=== PATIENT | female | born 1950 | race Caucasian/White ===

== ENCOUNTER 2018-01-01 16:00 | Inpatient (IN) | payer OTHER ==
[~2018-01-01] VITALS: Ht 157.5 cm; Wt 116.8 kg
[2018-01-01] MEDS ORDERED: FOSAMAX 70 MG T70 MG PO (16:46)
[2018-01-01] MEDS ORDERED: ALLOPURINOL 10100 M1 PO (16:47)
[2018-01-01] MEDS ORDERED: ASPIRIN325 PO (16:48)
[2018-01-01] MEDS ORDERED: LASIX 40 MG TAB40 M2 PO (16:49)
[2018-01-01] MEDS ORDERED: GABAPENTIN 100100 MG PO (16:51)
[2018-01-01] MEDS ORDERED: FEMARA2.5 MG PO (16:53)
[2018-01-01] MEDS ORDERED: CLARITIN10 MG PO (16:55)
[2018-01-01] MEDS ORDERED: MOBIC15 MG PO (16:55)
[2018-01-01] MEDS ORDERED: OMEGA-31000 M1 PO (16:56)
[2018-01-01] MEDS ORDERED: POTASSIUM20 PO (16:57)
[2018-01-01] MEDS ORDERED: PRAVACHOL20 MG PO (16:58)
[2018-01-01] MEDS ORDERED: AMBIEN 5 MG TABL5 M1 PO (16:59)
[2018-01-01 18:46] VITALS: BP 150/82
--- NOTE | 2018-01-01 19:33 | NUR ---
67 YEAR OLD FEMALE ADMITTED TO ROOM 321 FOR THERAPY AFTER RECENT LEFT CVA. PT LIVES ALONE IN A SENIOR APARTMENT COMPLEX, SHE STATES SHE HAS A LIFELINE FOR EMERGENCIES. ADMISSION PROCESS COMPLETED. PT ORIENTED TO ROOM, BED CONTROLS AND CALL LIGHT, INSTRUCTED TO CALL FOR ASSISTANCE IF SHE NEEDS TO GET OUT OF BED. ADMISSION ORDERS WILL BE OBTAINED FROM DR LERNER. REPORT GIVEN TO ONCOMING NURSE WHO WILL BE CARING FOR THE PT OVERNIGHT.
[2018-01-01 20:15] VITALS: BP 156/85
[2018-01-02 05:21] LABS: HEMATOCRIT 41.4 % (37.0-47.0); HEMOGLOBIN 13.8 gm/dL (12.0-15.0); MCH 31.3 pg (26.0-34.0); MCHC 33.3 g/dL (28.0-37.0); MCV 94.2 fL (80.0-100.0); MPV 7.5 fl. (7.2-11.1); RBC 4.4 mil/uL (4.20-5.00); RDW-CV 14.7 % (10.5-14.5); WBC 9.1 thou/uL (4.0-11.0)
--- NOTE | 2018-01-02 05:39 | NUR ---
Admit at 1745. She had been at [facility] with a left sided CVA affecting her right side. She has some facial droop on the right and dysphagia she is on a mechanically chopped diet with nectar thick liquids. At start of shift he lungs did sound wheezy with the stethescope. She did have some coughing through the night and began audiably wheezing this am. Dr Gregory notified that she was wheezing and short of air walking to the bathroom. Orders were recieved. She has right sided weakness, she needs assist to get out of bed and walks with walker and gaitbelt. Roomair sat after this last episode was 93%. She is currently breathing calmer and chest xray was obtained. SCD's placed on patient as ordered. Bedalarm on. She is resting in bed with head of bed up.
[2018-01-02 06:05] LABS: CREATININE 1.1 mg/dL (0.6-1.3); TOTAL BILIRUBIN 0.4 mg/dL (<0.1-1.0); TOTAL PROTEIN 6.9 g/dL (6.4-8.2)
[2018-01-02 08:08] VITALS: BP 176/86
--- NOTE | 2018-01-02 12:19 | NUR ---
Nutrition: Consult reveived for rehab admit. Admitted s/p CVA and fall. Pt with dysarthria, dysphagia, Rt sided facial droop. Mechanical Chopped diet ordered, Nectart thickened liquids. RX: fish oil, statin, prednisone. Pt has h/o statin intolerance. Wt: 263#. BG is WNL, albumin 3. +BM 2/8. Unsure of po intake today. RN away from desk at time of visit. Appears at low nutrition risk at this time. Will follow weekly on rehab.
--- NOTE | 2018-01-02 13:52 | NUR ---
SW attempted to meet with pt to complete initial assessment, introduce self, and SW role. Pt was sleeping soundly; SW tried to awaken pt twice to no avail. Pt nurse checked pt oxygen that was okay, pt just really tried for a nap apparently. SW called pt daler Jaja and left a message. Reportedly, pt lives in an apt alone with daughters for support at times and pt has a walker, grab bars, life line. SW to continue to follow to assist with safe dc planning.
--- NOTE | 2018-01-02 14:47 | NUR ---
I have reviewed the documentation by JOEY KINCAID from 01/02/18 to 01/02/18 and I concur with it. EMILY ALY
--- NOTE | 2018-01-02 15:50 | NUR ---
PT HAS WORKED WITH THERAPIES AND IS ALERT AND ORIENTATED. PT HAD WHEEZING THIS AM AND HAS MUCINEX AND PREDNISONE ORDERED WITH LESS COUGH THIS AFTERNOON. BREATHING TREATMENTS AND PRN O2 ORDERED. PT SAT NOW IS 93 ON ROOM AIR. PT DENIES PAIN OR NAUSEA AND HAS EATEN LUNCH IN DINNINGROOM. PT IS NOW ON THIN LIQUIDS PER SPEECH. PT CALLS FOR ASSIST TO BATHROOM AND IS CONTINENT OF B+B. PT AMBULATES WITH STEADY GAIT WITH GAITBELT, WALKER AND MIN ASSIST OF 1 AND CALLS FOR ASSIST.PT HAS WEAKNESS TO RT. HAND AND IS ASSISTED WITH PERICARE AFTER VOIDING. PT IS ALERT AND ORIENTATED AND PROGRESSES TOWARDS GOALS. HOURLY ROUNDING CONTINUES.
[2018-01-02 20:06] VITALS: BP 147/78
--- NOTE | 2018-01-03 05:01 | NUR ---
ASSUMED PT CARE AT 1930. PT ALERT AND ORIENTED X4, POLITE AND COOPERATIVE WITH CARES. S/P CVA WITH RIGHT HEMIPARESIS. PT UP TO BATHROOM WITH SBA, GAIT BELT AND WALKER. ASSISTED WITH PERICARES, RIGHT HAND WEAKNESS. BREATHING TREATMENTS FOR WHEEZING. PT ON 2L O2 PER NC OVERNIGHT. PT DENIES PAIN. TAKES PILLS WHOLE WITH WATER WITHOUT DIFFICULTY. PT SLEPT WELL OVERNIGHT. CALL LIGHT AND FREQUENTLY USED ITEMS WITHIN REACH. HOURLY ROUNDING IN PROGRESS, WILL CONTINUE TO MONITOR.
[2018-01-03 07:36] VITALS: BP 143/83
[2018-01-03 10:10] VITALS: BP 146/84
--- NOTE | 2018-01-03 16:50 | NUR ---
ASSUMED CARE AT 0730 PATIENT ALERT/ORIENTED, NO COMPLAINTS OF PAIN THIS SHIFT. UP WITH ASSIST OF ONE AND WALKER/GAIT BELT, TO DINING ROOM FOR MEALS, PARTICIPATED IN ALL THERAPIES TODAY, HOURLY ROUNDING COMPLETED, BED/CHAIR ALARMS IN PLACE, CALL LIGHT IN REACH. CONTINUE WITH CURRENT PLAN OF CARE
--- NOTE | 2018-01-03 19:40 | NUR ---
SITTING UP IN RECLINER WATCHING TV. 2+ BILATERAL LOWER EXTREMITY EDEMA NOTED. AMBULATED TO THE BATHROOM WITH SBA, GAITBELT, WALKER. MINIMAL ASSIST WITH PULLING PANTS UP ON RIGHT SIDE DUE TO RIGHT HEMEPARESIS. TOOK MEDS WHOLE WITH WATER. DENIES PAIN.
--- NOTE | 2018-01-04 05:13 | NUR ---
RESTED QUIETLY WITH 02 NC AT 2 LITERS. OXYGEN PLACED AT ABOUT 2200 FOR C/O SHORTNESS OF BREATH WITH RELIEF. NO COMPLAINTS VOICED DURING THE NIGHT. UP X ONE DURING THE NIGHT TO THE BATHROOM TO VOID. HOURLY ROUNDING IN PROGRESS.
[2018-01-04 06:50] VITALS: BP 141/71
--- NOTE | 2018-01-04 07:30 | NUR ---
0730 ASSUMED CARE OF PT. PLEASE SEE DOCUMENTED ASSESSMENT. PT IS AXOX4. PT WEARS O2 AT 2L PER NC AT HS. OXYGEN OFF IN BED WHEN THIS NURSE WENT INTO ROOM FOR ASSESSMENT. PT ASSISTED UP TO TOILET W/GAIT BELT AND WALKER W/STANDBY ASSIST. PT IS SOA W/EXERTION AND LUNG MOLINA HAVE WHEEZES T/OUT. PT STATES, "THAT'S NORMAL AND ONCE S SIT FOR AWHILE IT WILL GO AWAY." GOALS THIS SHIFT ARE TO: INCREASE ACTIVITY TOLERATED AND ASSIST W/BATHING.
--- NOTE | 2018-01-04 18:21 | NUR ---
OUTCOME SUMMARY: PROGRESSING TOWARDS GOALS. ABLE TO HELP W/BATHING/GROOMING/DRESSING. ABLE TO INCREASE ACTIVITY HOWEVER PT DOES BECOME SOA W/EXERTION. WEARS OXYGEN AT HS. PT ABLE TO USE RIGHT SIDE MORE EVIDENCED BY PT ABLE TO PULL UP HER PANTS AFTER TOILETING. OVERALL PROGNOSIS: GOOD.
[2018-01-04 19:30] VITALS: BP 150/78
--- NOTE | 2018-01-04 20:30 | NUR ---
SITTING UP WITH LEGS ELEVATED. DENIES PAIN. AMBULATED TO THE BATHROOM WITH SBA, GAITBELT, WALKER. NEEDS HELP WITH CLOTHES ON RIGHT SIDE DUE TO RIGHT HEMEPARESIS. 02 NC PLACED AT 2 LITERS FOR C/O SHORTNESS OF BREATH. HAS SHORTNESS OF BREATH WITH ACTIVITY AND AT NIGHT TIME. WHEEZES AUSCULATED IN JOSE R. TOOK MEDS WHOLE WITH WATER.
--- NOTE | 2018-01-05 05:57 | NUR ---
RESTED QUIETLY WITH 02 NC AT TWO LITERS. NO COMPLAINTS VOICED. HOURLY ROUNDING IN PROGRESS.
[2018-01-05 08:20] VITALS: BP 132/70
--- NOTE | 2018-01-05 15:52 | NUR ---
I have reviewed the documentation by JOEY KINCAID from 01/05/18 to 01/05/18 and I concur with it. EMILY ALY
--- NOTE | 2018-01-05 16:18 | NUR ---
PT HAS PARTICIPATED WITH THERAPIES AND CALLS FOR ASSIST TO BATHROOM. PT ANBULATES WELL WITH WALKER, GAITBELT AND MIN ASSIST OF 1. PT BETTER ABLE TO ADJUST CLOTHING AND CLEANSE SELF WITH USE OF RT. 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 PT DENIES PAIN OR DISCOMFORT. PT REMAINS ALERT AND ORIENTATED AND EATS MEALS IN DINNINGROOM. PT CONTINUES TO PROGRESS TOWARDS GOALS AND HOURLY ROUNDING CONTINUES.
--- NOTE | 2018-01-05 16:21 | NUR ---
I have reviewed the documentation by IVON KINCAID from 01/05/18 to 01/05/18 and I concur with it. EMILY ALY
[2018-01-05 19:44] VITALS: BP 130/58
--- NOTE | 2018-01-05 19:50 | NUR ---
SITTING UP IN RECLINER WITH LEGS ELEVATED WATCHING TV. DENIES PAIN. BREATHING IMPROVED SINCE THIS TIME LAST NIGHT. TOOK MED WHOLE WITH WATER.
--- NOTE | 2018-01-06 05:55 | NUR ---
RESTED QUIETLY. NO COMPLAINTS VOICED. HOURLY ROUNDING IN PROGRESS.
[2018-01-06 07:56] VITALS: BP 147/80
--- NOTE | 2018-01-06 10:10 | NUR ---
SW met with pt to follow up with pt since pt was sleeping at time of initial assessment. Pt confirmed that she lives in an apt alone, senior housing with call buttons if needed. Pt dtrs supportive. Pt has an elevated toilet seat, rolling walker, rollator, grab bars. Pt hopeful to wean off of oxygen prior to dc. Pt preference of [facility]. SW to continue to follow to assist with safe dc planning.
--- NOTE | 2018-01-06 18:48 | NUR ---
PT AMBULATES WITH STEADY GAIT, WALKER ,GAITBELT AND MIN ASSIST OF 1. PT HAS MILD WEAKNESS TO RT. HAND WHICH IS IMPROVING. PT CONTINENT OF B+B. PT HAS C/O HEADACHE AND STUFFY NOSE AND SINUSES TODAY WITH PL TYLENON AND SALINE NASAL SPRAY GIVNE WITH GOOD EFFECT. PT REMAINS ALERT AND ORIENTATED AND CALLS FOR ASSIST NEEDED. PT CONTINUES TO PROGRESS TOWARDS GOALS AND HOURLY ROUNDING CONTINUES.
[2018-01-06 20:30] VITALS: BP 167/79
--- NOTE | 2018-01-07 00:43 | NUR ---
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
--- NOTE | 2018-01-07 05:35 | NUR ---
SLEEPING SINCE 0.BRP W/ SBA X1 ONLY.ATE ALL TWO PACKAGES KAELA CRACKERS HS SNACKS W/ H20 ONLY.NO C/O HEADACHES DURING NIGHT.
[2018-01-07 08:12] VITALS: BP 162/82
--- NOTE | 2018-01-07 17:06 | NUR ---
SW met with pt to review team conference summary. Plan for pt to dc home next Friday after team reassesses pt length of stay and finalizes dc plans. Pt in agreement with plan. Pt to dc home to her apt alone with dtr support at times. Pt weaned from oxygen and has elevated toilet seat, RW, rollator, grab bars. Pt preference for [facility]. SW to continue to follow to assist with safe dc plan.
--- NOTE | 2018-01-07 19:02 | NUR ---
AM ASSESSMENT AND VITAL SIGNS COMPLETED DOCUMENTED. PT HAS BEEN COOPERATIVE AND PLEASANT. FALL PRECAUTIONS AND HOURLY ROUNDING CONTINUE. PT's RIGHT ARM REMAINS WEAKER THAN THE LEFT, NO SLURRED SPEECH OR FACIAL DROOP NOTED. PT IS MAKING SOME PROGRESS TOWARD DISCHARGE GOALS.
[2018-01-07 20:27] VITALS: BP 135/73
--- NOTE | 2018-01-07 20:30 | NUR ---
RESTING QUIELTY IN BED. DENIES DISCOMFORT. TOOK MEDS WHOLE WITH WATER. HAD VISITORS AT SHIFT CHANGE.
--- NOTE | 2018-01-08 05:51 | NUR ---
RESTED QUIETLY ON ROOM AIR ALL NIGHT. NO COMPLAINTS VOICED. HOURLY ROUNDING IN PROGRESS.
[2018-01-08 08:17] VITALS: BP 145/79
--- NOTE | 2018-01-08 15:45 | NUR ---
I have reviewed the documentation by JOEY KINCAID from 01/08/18 to 01/08/18 and I concur with it. EMILY ALY
--- NOTE | 2018-01-08 15:47 | NUR ---
ASSUMED CARES OF PT AT 0700. PT IN BED, BED IN LOW AND LOCKED POSITION, BED ALARM ON, FALL PRECAUTIONS IN PLACE, CALL BUTTON AND PERSONAL ITEMS IN PT REACH. PT USES CALL BUTTON APPROPRIATELY. PT A&O X4, RIGHT SIDED WEAKNESS R/T CVA. UP WITH SBA/WALKER/GAIT BELT TO BATHROOM. HRRR PER AUSCULTATION, LCTAB, NON LABORED BREATHING, VSS ON RA, AFEBRILE, PT DENIES PAIN THIS SHIFT. HOURLY ROUNDING CONTINUES. CHAIR ALARM IN USE WHEN PT IS OOB. PT PARTICIPATES IN THERAPIES AND TO DINING ROOM FOR MEALS. LE EDEMA, SCATTERED BRUISING/SCARS, SKIN INTACT. PT CONTINENT OF B&B, TWO BM'S TODAY, FORMED/SOLID. PT PROGRESSING TOWARDS GOAL, WILL CONTINUE TO MONITOR PT PROGRESS AND STATUS. HOURLY ROUNDING CONTINUES.
--- NOTE | 2018-01-08 19:22 | NUR ---
REPORT TO IT SPECIALIST FOR CONTINUED CARES. PT REMAINS STABLE. NURSE ASSISTED PT TO CHANGE FROM CLOTHES TO PAJAMAS TO PREPARE FOR BED. PT UP ONE ASSIST WITH GAIT BELT AND WALKER. RIGHT UE WEAKNESS. HOURLY ROUNDS COMPLETED. VSS ON RA. PT PROGRESSING TOWARDS GOAL. PT PARTICIPATED IN ALL THERAPIES AND TO DINING ROOM FOR MEALS.
[2018-01-08 20:40] VITALS: BP 154/84
--- NOTE | 2018-01-09 05:19 | NUR ---
ASSUMED PT CARE AT 1930. PT ALERT AND ORIENTED X4, POLITE AND COOPERATIVE WITH CARES. DENIES PAIN. LEFT CVA WITH RIGHT HEMIPARESIS. BRP WITH SBA AND GAIT BELT. TAKES PILLS WHOLE WITH WATER WITHOUT DIFFICULTY. ON ROOM AIR OVERNIGHT. ARINAIEN AT HS PER PT REQUEST. BED ALARM ON FOR SAFETY. PT SLEPT WELL OVERNIGHT. CALL LIGHT AND FREQUENTLY USED ITEMS WITHIN REACH. HOURLY ROUNDING IN PROGRESS, WILL CONTINUE TO MONITOR.
[2018-01-09 08:00] VITALS: BP 131/72
--- NOTE | 2018-01-09 16:26 | NUR ---
I have reviewed the documentation by JOEY KINCAID from 01/09/18 to 01/09/18 and I concur with it. EMILY ALY
--- NOTE | 2018-01-09 18:56 | NUR ---
AM ASSESSMENT AND VITAL SIGNS COMPLETED DOCUMENTED. PT HAS BEEN COOPERATIVE AND PLEASANT, CONTINUES TO PROGRESS TOWARD DISCHARGE GOALS. NO C/O PAIN OR DISCOMFORT. FALL PRECAUTIONS AND HOURLY ROUNDING IN PLACE.
[2018-01-09 20:32] VITALS: BP 149/82
--- NOTE | 2018-01-10 05:21 | NUR ---
ASSUMED PT CARE AT 1930. PT ALERT AND ORIENTED X4, POLITE AND COOPERATIVE WITH CARES. LEFT CVA WITH RIGH HEMIPARESIS. DENIES PAIN. BRP WITH SBA AND GAIT BELT. TAKES PILLS WHOLE WITH WATER WITHOUT DIFFICULTY. ON ROOM AIR OVERNIGHT. ARINAIEN AT HS PER PT REQUEST. BED ALARM ON FOR SAFETY. PT SLEPT WELL OVERNIGHT. CALL LIGHT AND FREQUENTLY USED ITEMS WITHIN REACH. USES CALL LIGHT APPROPRIATELY. HOURLY ROUNDING IN PROGRESS, WILL CONTINUE TO MONITOR.
[2018-01-10 08:00] VITALS: BP 123/79
--- NOTE | 2018-01-10 18:42 | NUR ---
AM ASSESSMENT AND VITAL SIGNS COMPLETED DOCUMENTED. FALL PRECAUTIONS AND HOURLY ROUNDING OBSERVED. PT IS COOPERATIVE AND COMPLETES ALL TASKS WITH SUPERVISION AND EXTRA TIME. TYLENOL GIVEN X2 FOR C/O LEFT HIP PAIN. NO ACUTE DISTRESS, WILL CONTINUE TO MONITOR.
[2018-01-10 20:00] VITALS: BP 141/77
--- NOTE | 2018-01-11 05:14 | NUR ---
ASSUMED PT CARE AT 1930. PT ALERT AND ORIENTED X4, POLITE AND COOPERATIVE WITH CARES. LEFT CVA WITH RIGHT HEMIPARESIS. DENIES PAIN. BRP WITH SBA AND GAIT BELT. TAKES PILLS WHOLE WITH WATER WITHOUT DIFFICULTY. ON ROOM AIR OVERNIGHT. ARINAIEN AT HS PER PT REQUEST. BED ALARM ON FOR SAFETY. PT SLEPT WELL OVERNIGHT. CALL LIGHT AND FREQUENTLY USED ITEMS WITHIN REACH. USES CALL LIGHT APPROPRIATELY. HOURLY ROUNDING IN PROGRESS, WILL CONTINUE TO MONITOR.
[2018-01-11 07:30] VITALS: BP 131/63
--- NOTE | 2018-01-11 18:05 | NUR ---
AM ASSESSMENT AND VITAL SIGNS COMPLETED DOCUMENTED. PT AMBULATED TO AND FROM THE DINING ROOM FOR MEALS. PRN TYLENOL AND ICE PACKS PROVIDED FOR LEFT HIP PAIN. PT IS VERY COOPERATIVE AND CONTINUES TO WORK TOWARD DISCHARGE GOALS. FALL PRECAUTIONS AND HOURLY ROUNDING IN PLACE.
[2018-01-11 20:00] VITALS: BP 140/70
--- NOTE | 2018-01-12 05:28 | NUR ---
ASSUMED CARES AT 1920. PT ALERT AND ORIENTED. PLEASANT. DECLINED ANY NEED FOR PAIN MED FOR LEFT HIP PAIN. AMBIEN GIVEN. SHE IS A SBA WITH GAIT BELT AND WALKER. UP TO BATHROOM. DOES OWN CARES. INITIALLY HAD DIFFICULTY FALLING ASLEEP DESPITE ALREADY TAKEN AMBIEN. ASLEEP AFTER MIDNIGHT. CALL LIGHT IN REACH AND BED ALARM ON.
[2018-01-12 07:30] VITALS: BP 132/76
--- NOTE | 2018-01-12 14:29 | NUR ---
I have reviewed the documentation by JOEY KINCAID from 01/12/18 to 01/12/18 and I concur with it. EMILY ALY
--- NOTE | 2018-01-12 16:17 | NUR ---
SW faxed initial referral to pt preference of HH agency: [facility] for pt to dc home Sunday 01/14. SW to fax final orders on dc day. SW to continue to follow to assist with safe dc planning.
--- NOTE | 2018-01-12 16:24 | NUR ---
ASSUMMED CARE OF PT AT 0730, PT ALERT AND ORIENTED, TRANSFERS WITH SBA, GB WALKER, VOIDS PER TOILET, AMBULATED TO DININGROOM FOR LUNCH, PT COMPLAINED OF LEFT HIP PAIN, MEDICATED FOR PAIN WITH GD RELIEF , ORDER OBTAINED FOR TRAMADOL PER PT REQUEST FOR USE AT NIGHT, TAKING FOOD AND FLUIDS WELL, PARTICIPATED IN ALL THERAPIES, HOURLY ROUNDING COMPLETED, ASSESSMENT COMPLETE, WILL CONTINUE TO MONITER.
[2018-01-12 19:55] VITALS: BP 149/86
--- NOTE | 2018-01-13 05:17 | NUR ---
ASSUMED PT CARE AT 1930. PT ALERT AND ORIENTED X4, POLITE AND COOPERATIVE WITH CARES. PT UP WITH SBA, GAIT BELT AND WALKER. UP TO BATHROOM X1 OVERNIGHT TO VOID. PT DENIES PAIN HAVING HAD TRAMADOL BEFORE SHIFT CHANGE. ARINAIEN AT HS PER PT REQUEST. PT SLEPT WELL OVERNIGHT. CALL LIGHT AND FREQUENTLY USED ITEMS WITHIN REACH. USES CALL LIGHT APPROPRIATELY. BED ALARM ON FOR SAFETY. HOURLY ROUNDING IN PROGRESS, WILL CONTINUE TO MONITOR.
[2018-01-13 07:30] VITALS: BP 108/68
--- NOTE | 2018-01-13 16:52 | NUR ---
ASSUMMED CARE OF PT AT 0730, PT ALERT AND ORIENTED, PT TRANSFERS WITH ASSIST OF 1 GB AND WALKER, PT COMPLAINS OF HIP PAIN, MEDICATED X 1 FOR PAIN PRIOR TO THERAPY THIS AM, PT TAKING FOOD AND FLUIDS WELL, VOIDS PER TOILET, PT PARTICIPATED IN ALL THERAPIES, AMBULATED TO DININGROOM FOR LUNCH, HOURLY ROUNDING COMPLETED, ASSESSMENT COMPLETE, WILL CONTINUE TO MONITER.
[2018-01-13 19:38] VITALS: BP 144/68
[2018-01-14 03:53] LABS: HEMATOCRIT 37.5 % (37.0-47.0); HEMOGLOBIN 12.8 gm/dL (12.0-15.0); MCH 31.7 pg (26.0-34.0); MCV 93.1 fL (80.0-100.0); MPV 7.6 fl. (7.2-11.1); RBC 4.03 mil/uL (4.20-5.00); RDW-CV 14.4 % (10.5-14.5); WBC 8.2 thou/uL (4.0-11.0)
[2018-01-14 04:19] LABS: CALCIUM 8.6 mg/dL (8.5-10.1); MAGNESIUM 1.7 mg/dL (1.8-2.4); POTASSIUM 4.2 mmol/L (3.5-5.1)
--- NOTE | 2018-01-14 05:29 | NUR ---
ASSUMED PT CARE AT 1920. PT ALERT AND ORIENTED X4, POLITE AND COOPERATIVE WITH CARES. PT UP WITH SBA, GAIT BELT AND WALKER TO BATHROOM TO VOID. PRN TRAMADOL AND PRN AMBIEN AT HS PER PT REQUEST. PT SLEPT WELL OVERNIGHT. CALL LIGHT AND FREQUENTLY USED ITEMS WITHIN REACH. USES CALL LIGHT APPROPRIATELY. BED ALARM ON FOR SAFETY. HOURLY ROUNDING IN PROGRESS, WILL CONTINUE TO MONITOR.
[2018-01-14 08:42] VITALS: BP 138/71
--- NOTE | 2018-01-14 16:13 | NUR ---
ASSUMED CARE AT 0730, PATIENT ALERT/ORIENTED, NO COMPLAINTS OF PAIN THIS SHIFT, UP WITH STANDBY ASSIST WITH CANE/GAIT BELT. TO DINING ROOM FOR MEALS, PARTICIPATED IN ALL THERAPIES TODAY, HOURLY ROUNDING COMPLETED, BED/CHAIR ALARMS IN PLACE, CALL LIGHT IN REACH.
--- NOTE | 2018-01-14 17:14 | NUR ---
SW met with pt to review team conference summary. Plan for pt to remain on rehab unti a few more days, possible dc Friday if not, Friday after team conference to reassess. SW explained team's concerns with pt home alone and pt said that she knows she will be okay at home with family and friends to check on her and she says that her granddaughter should be able to stay with her for a week. 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 SW brought up idea of SNF as discussed in team as well, and pt adimantly refused, stating that she will not go to SNF. SW requested being able to arrange for family training and pt is declining saying that her family would be unable to take time off work, etc. SW to continue to follow to contact family to review and to assist with safe dc planning.
[2018-01-14 20:27] VITALS: BP 145/64
--- NOTE | 2018-01-15 01:42 | NUR ---
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
--- NOTE | 2018-01-15 05:40 | NUR ---
SLEEPING SINCE 2199.BRP X1 ONLY W/ SBA.TOOK ALL ORANGE JUICE W/ 2 PACKAGES KAELA CRACKERS HS SNACKS.
[2018-01-15 07:51] VITALS: BP 133/77
--- NOTE | 2018-01-15 16:56 | NUR ---
ASSUMED CARE AT 0730 PATIENT ALERT/ORIENTED, NO COMPLAINTS OF PAIN THIS SHIFT, UP WITH STANDBY ASSIST WITH WALKER/GAIT BELT. PARTICIPATED IN ALL THERAPIES TO DINING ROOM FOR MEALS, HOURLY ROUNDING COMPLETED, BED/CHAIR ALARMS IN PLACE, CALL LIGHT IN REACH. PATIENT RECIEVED NEWS OF FAMILY MEMBER PASSING AWAY TODAY, ORDERED LORAZEPAM PRN TO HELP WITH ANXIETY ISSUES, FIRST DOSE GIVEN AT 1630, PATIENT RESTING WITH EYES CLOSED IN CHAIR.
[2018-01-15 19:50] VITALS: BP 139/70
--- NOTE | 2018-01-16 00:24 | NUR ---
ASSUMED CARE @ 1924-.AWAKE IN BED WATCHING TV.HOB UP.BED ALARM PUT ON @ 1924.HAND OUTSOLE TACKER & PEDAL PUSHES EQUALLY STRONG.REFUSED SCHEDULED HS MELATONIN.PREFERS PRN AMBIEN 10 MG ORAL & GIVEN @ 2011.AWAKE @ 2305.PRN ATIVAN 0.5 MG ORAL GIVEN.APPEARS SLEEPING @ -01/16-FRIDAY.ON HOURLY ROUNDS. SBA FOR ALL TRANSFERS & TOILETING.
--- NOTE | 2018-01-16 05:24 | NUR ---
SLEEPING SINCE 2099.BRP X1 ONLY.REFUSED HS SNACKS.NOTED @ 1950-RED RASHES ON FACE.PATIENT CLAIMS SHE GETS RASHES IF SHE IS ON STRESS- OF BROTHER IN LAW.MODIFIED IND TODAY-01/16-FRIDAY.
[2018-01-16 07:30] VITALS: BP 147/81
--- NOTE | 2018-01-16 10:04 | NUR ---
SW tried to contact pt dtr to discuss dc planning and family training. No answer so SW left a detailed message requesting a call back. Pt continue to be adimant that she will be returning home with HH and not SNF. Possibility for Mod I in pt room today. SW to continue to follow to assist with safe dc planning.
--- NOTE | 2018-01-16 18:41 | NUR ---
ASSUMED CARE AT 0730. 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 HX OF CVA. PT. IS MOD I IN HER ROOM. TRANSFERS WITH WALKER AND AMBULATING TO BR TO VOID. ABLE TO MANAGE CLOTHING AND DO HYGEINE. DENIES PAIN OR REQUESTS PARTICIPATING IN THERAPIES THROUGHOUT THE DAY. TO DR FOR MEALS. APPETITE GOOD FEEDS SELF AND TAKES MEDS WITHOUT DIFFICULTY.
--- NOTE | 2018-01-16 19:55 | NUR ---
RESTING QUIETLY IN BED. HAS RED RASH ON FACE. PT STATES IT WAS BECAUSE OF SOMETHING TO DO WITH SOMETHING ABOUT HER BROTHER(?) ANXIOUS AND NEEDY. ASKED THIS NURSE TO HAND HER THE WATER GLASS. REMINDED PT THAT SHE WAS MODIFIED INDEPENDENT AND NEEDED TO DO TASKS WITHOUT ASSIST SO SHE WILL BE ABLE TO RETURN HOME. SUGGESTED TO PATIENT TO RAISE THE HEAD OF THE BED SO SHE COULD REACH HER WATER. PT STATES SHE WAS UNABLE TO REACH THE CONTROLS ON HER SIDE RAILS. PT LATER CALLED FOR ASSIST TO LOWER HER BED SO SHE COULD SCOOT TO THE HEAD OF THE BED. POINTED TO THE CONTROLS ON THE SIDERAIL AND PT LOWERED THE HEAD OF THE BED AND THEN SCOOTED HERSELF TO THE HEAD OF THE BED.
[2018-01-16 20:31] VITALS: BP 123/69
--- NOTE | 2018-01-17 05:58 | NUR ---
RESTED QUIETLY. UP X ONE DURING THE NIGHT TO THE BATHROOM WITH A WALKER WITHOUT ASSIST. PT IS MODIFIED INDEPENDENT IN HER ROOM WITH A WALKER. NO COMPLAINTS VOICED. HOURLY ROUNDING IN PROGRESS.
[2018-01-17 08:19] VITALS: BP 132/72
--- NOTE | 2018-01-17 18:39 | NUR ---
ASSUMED CARE AT 0730 PATIENT ALERT/ORIENTED, NO COMPLAINTS OF PAIN THIS SHIFT, UP LIZ IN ROOM WITH NO DIFFICULTIES NOTED. CALL LIGHT IN REACH. PARTICIPATED IN ALL THERAPIES TODAY, TO DINING ROOM FOR MEALS.
[2018-01-17 20:30] VITALS: BP 133/73
[2018-01-18 03:53] LABS: HEMATOCRIT 38.2 % (37.0-47.0); HEMOGLOBIN 12.7 gm/dL (12.0-15.0); MCHC 33.2 g/dL (28.0-37.0); MCV 93.4 fL (80.0-100.0); MPV 7.8 fl. (7.2-11.1); RBC 4.08 mil/uL (4.20-5.00); RDW-CV 14.6 % (10.5-14.5); WBC 7.8 thou/uL (4.0-11.0)
[2018-01-18 04:22] LABS: ALBUMIN 2.6 g/dL (3.4-5.0); CALCIUM 8.6 mg/dL (8.5-10.1); MAGNESIUM 1.7 mg/dL (1.8-2.4); TOTAL BILIRUBIN 0.4 mg/dL (<0.1-1.0); TOTAL PROTEIN 5.8 g/dL (6.4-8.2)
--- NOTE | 2018-01-18 05:16 | NUR ---
ASSUMED PT CARE AT 1930. PT ALERT AND ORIENTED X4. HX OF CVA. PRN RODNEY AND ATIVAN AT HS. PT EXPECTING DR. LERNER TO WRITE PASS SO SHE CAN ATTEND HER [id number] VISITATION ON FRIDAY NIGHT AND HOPES TO BE DISCHARGED IN TIME FOR HIS AT 2:00 P.M. ON FRIDAY. PT IS MOD I IN ROOM, UP TO BATHROOM WITH WALKER WITHOUT INCIDENT. CALL LIGHT AND FREQUENTLY USED ITEMS WITHIN REACH. HOURLY ROUNDING IN PROGRESS, WILL CONTINUE TO MONITOR.
[2018-01-18 08:06] VITALS: BP 124/55
--- NOTE | 2018-01-18 18:40 | NUR ---
ASSUMED CARE AT 0730 PATIENT ALERT/ORIENTED, NO COMPLAINTS OF PAIN THIS SHIFT, LIZ IN ROOM WITH NO CONCERNS NOTED AT THIS TIME, TO DINING ROOM FOR MEALS, HOURLY ROUNDING COMPLETED. FAMILY VISITING TODAY, PATIENT REQUESTING PASS TOMORROW FOR BROTHER IN LAW'S VISITION
[2018-01-18 20:13] VITALS: BP 154/84
--- NOTE | 2018-01-19 05:35 | NUR ---
ASSUMED PT CARE AT 1930. PT ALERT AND ORIENTED X4, POLITE AND COOPERATIVE WITH CARES. HX OF CVA. PRN AMBIEN AND ATIVAN AT HS. PT SLEPT WELL OVERNIGHT. PT IS EXPECTING DR. LERNER TO WRITE PASS SO SHE CAN ATTEND HER [id number] AND HOPES TO BE DISCHARGED IN TIME FOR THE ON FRIDAY AT 1400. PT IS MOD I IN ROOM, UP TO BATHROOM WITH WALKER. CALL LIGHT AND FREQUENTLY USED ITEMS WITHIN REACH. HOURLY ROUNDING IN PROGRESS, WILL CONTINUE TO MONITOR.
[2018-01-19 08:11] VITALS: BP 144/73
--- NOTE | 2018-01-19 11:25 | NUR ---
SW met with pt to discuss dc planning. Pt reported that dtr Gisela would be able to come in today or tomorrow for family training due to Gisela needing to assist with her nephews as pt brother in law's is tomorrow at 2pm and the family is all making arrangements/preparing for the . Possible for pt to dc home tomorrow in time to go to her brother in law's pending Dr Del Toro's final dc orders and pt readiness overall. Pt reported that she will have family stay with her at dc for a while and HH services through [facility] . SW to continue to follow to assist with finalizing safe dc planning. Pt insurance expects pt to be ready to dc home tomorrow and they will call SW tomorrow afternoon to confirm.
--- NOTE | 2018-01-19 17:37 | NUR ---
ASSUMED CARE AT 0730. 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 HX OF CVA. MOD INDEPENDENT IN HER ROOM UP AND ABOUT IN ROOM WITH WALKER SAFELY. DENIES PAIN OR REQUESTS. PARTICIPATING WITH THERAPIES THROUGHOUT THE DAY. TO DR ESPARZA FOR MEALS. APPETITE GOOD FEEDS SELF TAKES MEDS WITHOUT DIFFICULTY.
[2018-01-19 20:39] VITALS: BP 129/84
--- NOTE | 2018-01-20 05:32 | NUR ---
ASSUMED PT CARE AT 1930. PT ALERT AND ORIENTED X4, POLITE AND COOPERATIVE WITH CARES. HX OF CVA. PT IS MOD I IN ROOM WITH WALKER. PT DENIES PAIN. PT ANTICIPATING DISCHARGE TODAY IN TIME TO ATTEND [id number] . CALL LIGHT AND FREQUENTLY USED ITEMS WITHIN REACH. HOURLY ROUNDING IN PROGRESS, WILL CONTINUE TO MONITOR.
[2018-01-20 07:30] VITALS: BP 146/79
[2018-01-20 09:59] VITALS: BP 146/79
--- NOTE | 2018-01-20 10:00 | NUR ---
Pt to dc home today with family support. HH services to follow. SW faxed final orders and med list to [facility] at fax [phone]. Pt has equipment at home but rolling walker is rollator which was just presented to therapy and SW this morning. SW to check if pt eligible for RW and will order to be delivered prior to pt dc if so. Pt dtr to provide pt ride home.
[2018-01-20 11:14] VITALS: BP 146/79
[2018-01-20 13:15] VITALS: BP 146/79
--- NOTE | 2018-01-20 13:34 | NUR ---
ASSUMED CARE AT 0730. 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 HX OF CVA. PT. IS MOD I IN HER ROOM AMBULATES WITH WALKER SAFELY TO BR AND TO RECLINER. DENIES PAIN OR REQUESTS. TO DR FOR MEALS. APPETITE GOOD FEEDS SELF TAKES MEDS WITHOUT DIFFICULTY. IS EXCITED TO BE DISCHARGED TODAY TO HOME WITH HOME HEALTH SERVICES. DISCHARGE INSTRUCTIONS WERE GIVEN AND A SCRIPT VERBALIZED UNDERSTANDING OF INSTRUCTIONS NO QUESTIONS FROM PT. TRANSPORTED HOME PER PRIVATE CAR WITH FAMILY AND BELONGINGS AT 1315. PARTICIPATED IN THERAPIES THIS A.M.
--- NOTE | 2018-02-03 14:42 | PLAN ---
[address] [address] REHAB UNIT PLAN OF CARE Name: DAVON MCFARLAND Room: [address] IN [facility]#: [id number] Admission: 01/01/18 Attend Phys: Wanda Del Toro DO Discharge: 01/20/18 Date of : 48 Report #: [id number] THIS REPORT FOR: //name// CC: Samuel Del Toro This is a 67-year-old right-hand dominant female that presented to the Emergency Room on 12/29/2017 with a right facial droop, slurred speech, right-sided hemiparesis, who also had a fall from standing height the night before her admission. She was diagnosed with a left-sided cerebrovascular accident as well as a left basal ganglia infarct. She did have some aphasia and dysphagia. She also has some ongoing hemiparesis. MEDICAL PROGNOSIS: Good. REHABILITATION PROGNOSIS: Good. Previous level of function was independent to modified independent with activities of daily living. Current level of function is minimum to moderate assistance of 1-2 depending on therapy, activity and time of day. Currently, due to her dysphagia, she is on an altered diet with nectar thick liquids and mechanical soft chopped diet. Estimated length of stay is 14-18 days with discharge disposition to the home setting where she does have supportive family. Physical therapy will see the patient 60-90 minutes per day, 5 days per week, working on upper and lower body strength, balance, coordination, navigation. Occupational therapy will work with the patient 60-90 minutes per day, 5 days per week, working on upper and lower body strength, balance, coordination, navigation, bathing, dressing, and toileting. Speech language pathology will work with the patient 30-90 minutes per day, 5 days per week, working on aphasia, dysphagia and cognitive impairment including memory and comprehension as well as expression. She also will likely undergo VitalStim in order to improve her swallow coordination in order to upgrade her diet. This is an overall plan of care, may change from time to time, we will team weekly and make changes in plan of care as needed. <ELECTRONICALLY SIGNED> By: Wanda Del Toro DO 02/03/18 1442 [id number] Del Toro DO /nt
--- NOTE | 2018-02-03 14:42 | H ---
[address] [address] HISTORY AND PHYSICAL Name: DAVON MCFARLAND Room: [address] IN .R.#: [id number] Admission: 01/01/18 Attend Phys: Wanda Del Toro, Discharge: 01/20/18 Date of : 48 Report #: [id number] THIS REPORT FOR: //name// CC: Samuel Del Toro DATE OF SERVICE: 01/01/2018 HISTORY OF PRESENT ILLNESS: This is a female admitted to inpatient rehabilitation to facilitate safe discharge home, status post right humeral fracture, postop day 1 with AAA, lymphedema and debility, alterations in activities of daily living, who presents to rehab after medical stay where she suffered a fall from standing height on 12/28/2017. She then woke up with right facial droop, slumping. MRI was notable for a left basal ganglia and left parietal stroke. Etiology of the stroke is not known at this time, but has been worked up. No significant changes since the preadmission screening. Previous level of function was independent to modified independent with activities of daily living. Current level of function is moderate to maximum assistance of 1-2 depending on therapy, activity and time of day. Estimated length of stay is 14-18 days with discharge disposition to home setting with supportive family. FAMILY HISTORY: AMOXICILLIN, CEFUROXIME, PENICILLIN. MEDICATIONS: Reviewed and reconciled by myself and are available in the MAR. PAST MEDICAL HISTORY: Significant for hypertension, breast cancer, hyperlipidemia, cataract surgery, total knee replacement, bilateral rotator cuff surgery, and bilateral foot surgeries. FAMILY HISTORY: Significant family history for vascular disease. SOCIAL HISTORY: No tobacco, rare alcohol, and no illicit drug use. REVIEW OF SYSTEMS: A 14-point review of systems is done today, is negative except as mentioned in HPI, specifically no fever, chest pain, shortness of breath, abdominal pain or distention. PHYSICAL EXAMINATION: GENERAL: Alert, oriented, in no apparent distress. VITAL SIGNS: Reviewed and are stable. HEENT: Head: Atraumatic, normocephalic. Pupils equal, round, and reactive. ABDOMEN: Soft, nontender, nondistended. NEUROLOGIC: Cranial nerves 2-12 are grossly intact. No focal neuro deficits. 5/5 strength in the bilateral upper and lower extremities with some weakness noted. SKIN: Warm and dry. No [place] [address] HISTORY AND PHYSICAL Name: DAVON MCFARLAND Room: [address] IN [facility]#: [id number] Admission: 01/01/18 Attend Phys: Wanda Del Toro, Discharge: 01/20/18 Date of : 48 Report #: [id number] ASSESSMENT: 1. Fall from standing height. 2. Bilateral stroke. 3. Residual hemiparesis and some memory and cognition changes. PLAN: 1. Admission to inpatient rehabilitation to facilitate safe discharge home. 2. PT, OT, speech, language, case management, nursing and HIMS to make evaluations and recommendations. 3. We will team her weekly and make changes to the plan of care as needed. <ELECTRONICALLY SIGNED> By: Wanda Del Toro DO 02/03/18 1442 1823 1900Wanda Del Toro DO /nt
--- NOTE | 2018-02-23 15:02 | D ---
[facility] [address] [place] [address] DISCHARGE SUMMARY Name: DAVON MCFARLAND Room: [address] IN M.R.#: [id number] Admission: 01/01/18 Attend Phys: Wanda Del Toro DO Discharge: 01/20/18 Date of : 48 Report #: [id number] THIS REPORT FOR: //name// CC: Samuel Del Toro DATE OF SERVICE: 01/20/2018 DISCHARGE DIAGNOSIS: Right humeral fracture. DISCHARGE DISPOSITION: To home with family support of her as well as her daughter. The patient did well with physical and occupational therapy as well as speech and language pathology. She did have ortho follow her during her stay and she did have positive gains. She did have some significant cognitive deficit; however, she did have her daughter stated that she would stay with her on the discharge so that she was safe 24/7 supervision due to some significant memory changes. Medication reconciliation was completed by myself. She was discharged on a heart healthy diet. Fall precautions and 24/7 supervision. She will follow with Orthopedic Surgery in 1-2 weeks as well as primary care within 1 week. Notifications for physician were given. DISCHARGE PHYSICAL EXAMINATION: GENERAL: Alert, oriented, in no apparent distress. VITAL SIGNS: Reviewed and are stable. HEENT: Atraumatic, normocephalic. Pupils equal, round, reactive. ABDOMEN: Soft, nontender, nondistended. NEUROLOGIC: Cranial nerves 2-12 are grossly intact with no focal neuro deficits. SKIN: Warm and dry. No rashes or lesions noted. <ELECTRONICALLY SIGNED> By: Wanda Del Toro DO 02/23/18 1502 1302 1404Wanda Del Toro DO /nt
--- NOTE | 2018-02-23 15:06 | D ---
[facility] [address] [place] [address] DISCHARGE SUMMARY Name: DAVON MCFARLAND Room: [address] IN M.R.#: [id number] Admission: 01/01/18 Attend Phys: Wanda Del Toro DO Discharge: 01/20/18 Date of : 48 Report #: [id number] THIS REPORT FOR: //name// CC: Samuel Del Toro DATE OF SERVICE: 01/20/2018 DISCHARGE DIAGNOSIS: Cerebrovascular accident. DISCHARGE DISPOSITION: To home with home health PT, OT, nursing and supportive family. The patient progressed quite well with her therapies utilizing physical and occupational therapy as well as speech and language pathology. She progressed to a modified independent level of care. She does have a daughter that is going to stay with her initially on discharge. Notifications for physician were given. She will follow with her primary care physician within 1 week and Neurology within 2-4 weeks. MEDICATIONS: Reviewed and reconciled by myself and are available in the MAR. She will maintain a heart healthy diabetic diet. She will maintain fall precautions. DISCHARGE PHYSICAL EXAMINATION: GENERAL: Alert, oriented, no apparent distress. VITAL SIGNS: Reviewed and are stable. HEENT: Head: Atraumatic, normocephalic. Pupils equal, round, reactive. ABDOMEN: Soft, nontender, nondistended. NEUROLOGIC: Cranial nerves 2-12 are grossly intact. No focal neuro deficits, 5/5 strength in the bilateral upper and lower extremity. SKIN: Warm and dry. No rashes or lesions noted. <ELECTRONICALLY SIGNED> By: Wanda Del Toro DO 02/23/18 1506 1217 [id number] Del Toro DO /nt
== END 2018-01-20 13:15 | disposition home health service (06) | DRG 65 ==
LOC: M.REH 16:00
PROVIDERS: Family Medicine; Internal Medicine; ADMIT Physical Medicine & Rehabilitation
DX: I63.9 Cerebral infarction, unspecified (principal); G81.91 Hemiplegia, unspecified affecting right dominant side; Z68.42 Body mass index [BMI] 45.0-49.9, adult; R29.810 Facial weakness; I10 Essential (primary) hypertension; E78.5 Hyperlipidemia, unspecified; R47.81 Slurred speech; R47.01 Aphasia; R13.10 Dysphagia, unspecified; Z60.2 Problems related to living alone; R73.9 Hyperglycemia, unspecified; J06.9 Acute upper respiratory infection, unspecified; R26.9 Unspecified abnormalities of gait and mobility; M25.552 Pain in left hip; R47.1 Dysarthria and anarthria; Z98.49 Cataract extraction status, unspecified eye; Z96.653 Presence of artificial knee joint, bilateral; Z91.81 History of falling; Z87.81 Personal history of (healed) traumatic fracture; Z88.0 Allergy status to penicillin; Z88.1 Allergy status to other antibiotic agents; Z88.8 Allergy status to other drugs, medicaments and biological substances; E66.01 Morbid (severe) obesity due to excess calories; Z85.3 Personal history of malignant neoplasm of breast; Z79.82 Long term (current) use of aspirin; Z79.899 Other long term (current) drug therapy